=== PATIENT | male | born 1975 | race Caucasian/White ===

== ENCOUNTER → 2016-07-05 | Outpatient (CLI) | payer OTHER | LOC: RAD 13:05 | DX: M54.5 Low back pain (principal) | CPT/HCPCS: 72100 ==

== ENCOUNTER → 2020-05-10 | Outpatient (CLI) | payer OTHER ==
[~2020-05-10] MED LIST: CELEBREX100 MG PO
== END ==
LOC: LAB 13:35
DX: Z51.81 Encounter for therapeutic drug level monitoring (principal); Z79.1 Long term (current) use of non-steroidal anti-inflammatories (NSAID)
CPT/HCPCS: 36415; 82565

== ENCOUNTER 2020-07-16 18:02 | Emergency (ER) | payer OTHER ==
[2020-07-16] MEDS ORDERED: CELEBREX100 MG PO (19:39)
== END 2020-07-16 20:00 | disposition home or self-care (01) ==
LOC: ER1 18:02
DX: S93.402A Sprain of unspecified ligament of left ankle, initial encounter (principal); I10 Essential (primary) hypertension; X50.1XXA Overexertion from prolonged static or awkward postures, initial encounter; Y92.009 Unspecified place in unspecified non-institutional (private) residence as the place of occurrence of the external cause
CPT/HCPCS: 73610; 99283

== ENCOUNTER → 2020-07-26 | Outpatient (CLI) | payer OTHER | LOC: RAD 11:45 | DX: M25.572 Pain in left ankle and joints of left foot (principal); M25.472 Effusion, left ankle | CPT/HCPCS: 73610 ==